=== PATIENT | female | born 1975 | race Caucasian/White ===

== ENCOUNTER 2018-08-13 10:10 | Emergency (ER) | payer MEDICAID ==
[~2018-08-13] VITALS: Ht 165.1 cm; Wt 89.1 kg
[2018-08-13 10:13] VITALS: BP 135/77
[2018-08-13] MEDS: KETOROLAC 30 MG/ML VIAL IVP ONE (11:18)
[2018-08-13 11:25] LABS: BASOPHILS % (AUTO) 0.3 % (0.0-2.0); EOSINOPHILS # (AUTO) 0.2 K/uL (0-0.4); HEMATOCRIT 41.3 % (36-48); HEMOGLOBIN 13.1 g/dL (12.0-16.0); LYMPHOCYTES # (AUTO) 2.2 K/uL (2.5-16.5); MEAN CORPUSCULAR HEMOGLOBIN 26 pg (27-31); MEAN CORPUSCULAR HGB CONC 32 g/dL (33-37); MEAN CORPUSCULAR VOLUME 80.2 fL (80-94); MONOCYTES # (AUTO) 0.6 K/uL (0.8-1.0); MONOCYTES % (AUTO) 7.1 % (1.7-9.3); NEUTROPHILS # (AUTO) 6.1 K/uL (1.8-7.7); NEUTROPHILS % (AUTO) 66.6 % (42.2-75.2); PLATELET COUNT (AUTO) 206 K/uL (140-450); RED BLOOD CELL COUNT(AUTO) 5.15 MIL/uL (4.20-5.40); RED CELL DISTRIBUTION WIDTH 15.2 % (11.6-13.7); WHITE BLOOD COUNT (AUTO) 9.2 K/uL (4.8-10.8)
[2018-08-13 11:40] LABS: ALBUMIN 3.4 g/dL (3.4-5.0); ANION GAP 12.3 (8-16); CREATININE 0.6 mg/dL (0.6-1.3); POTASSIUM 4.3 mmol/L (3.5-5.1); TOTAL BILIRUBIN 0.2 mg/dL (0.0-1.0)
[2018-08-13 11:55] LABS: BILIRUBIN,URINE NEGATIVE (NEGATIVE); BLOOD, URINE 3+ (NEGATIVE); COLOR,URINE YELLOW (YELLOW); LEUKOCYTE ESTERASE ,URINE NEGATIVE (NEGATIVE); NITRITE, URINE NEGATIVE (NEGATIVE); PH,URINE 6.5 (5.0-9.0); UGLUCOSE 3+ (NEGATIVE)
[2018-08-13 11:56] LABS: APPEARANCE,URINE SLIGHTLY HAZY (CLEAR)
[2018-08-13 11:57] LABS: RBC,URINE 20-50 /HPF (0-5); WBC,URINE 0-5 (RARE) /HPF (0-5)
[2018-08-13] MEDS: NACL 0.9% 1,000 ML IV ONE (11:58)
[2018-08-13 13:00] VITALS: BP 118/72
== END 2018-08-13 13:01 | disposition home or self-care (01) ==
LOC: MED 10:10
DX: R10.30 Lower abdominal pain, unspecified (principal); R50.9 Fever, unspecified
CPT/HCPCS: 36415; 74176; 80053; 81001; 81025; 83690; 85025; 96374; 99284; J1885; J7030

== ENCOUNTER 2019-09-05 08:05 | Emergency (ER) | payer MEDICAID ==
[~2019-09-05] VITALS: Ht 160 cm; Wt 111.2 kg
[2019-09-05 08:07] VITALS: BP 115/62
--- NOTE | 2019-09-05 08:08 | NUR ---
PATIENT AMBULATED WITH STEADY GAIT TO BED 4.
--- NOTE | 2019-09-05 08:10 | NUR ---
PT BIB FAMILY C/O CP, COUGH,SOB X 3DAYS. PT DENIES N/V/D; SKIN IS INTACT, PINK/WARM/DRY; AAOX4, PERRL, WITH EVEN AND STEADY GAIT; LUNGS CLEAR BL, BREATHING UNLABORED; HR EVEN AND REGULAR, BL PERIPHERAL PULSES PRESENT; BS ACTIVE X4, NO TENDERNESS TO PALPATION. PT DENIES ANY FEVER, CP, SOB, OR COUGH AT THIS TIME; PT STATES 5/10 PAIN AT THIS TIME; VSS; PATIENT POSITIONED FOR COMFORT; HOB ELEVATED; BEDRAILS UP X2; BED DOWN.
--- NOTE | 2019-09-05 09:06 | NUR ---
Pt report given to [facility]. Transfer of care at this time.
[2019-09-05 10:23] VITALS: BP 115/62
--- NOTE | 2019-09-05 10:25 | NUR ---
Patient discharged with v/s stable. Written and verbal after care instructions given and explained. Patient alert, oriented and verbalized understanding of instructions. Ambulatory with steady gait. All questions addressed prior to discharge. ID band removed. Patient advised to follow up with PMD. Rx of TAMIFLU, PROMETHAZINE, MOTRIN given. Patient educated on indication of medication including possible reaction and side effects. Opportunity to ask questions provided and answered.
== END 2019-09-05 10:25 | disposition home or self-care (01) ==
LOC: MED 08:05
DX: J10.1 Influenza due to other identified influenza virus with other respiratory manifestations (principal)
CPT/HCPCS: 81002; 81025; 87804; 93005; 99284